=== PATIENT | male | born 1990 | race American Indian/Alaskan Native ===

== ENCOUNTER 2021-09-16 22:58 | Emergency (ER) | payer SELFPAY ==
[2021-09-16 23:50] VITALS: BP 124/70
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
== END 2021-09-17 07:00 | disposition left against medical advice (07) ==
LOC: ED 22:58
DX: M25.512 Pain in left shoulder (principal); Z53.21 Procedure and treatment not carried out due to patient leaving prior to being seen by health care provider

== ENCOUNTER 2021-09-17 16:14 | Emergency (ER) | payer OTHER ==
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
[2021-09-17 21:30] VITALS: BP 132/77
== END 2021-09-17 21:29 | disposition home or self-care (01) ==
LOC: ED 16:14
DX: M79.18 Myalgia, other site (principal); M25.562 Pain in left knee; M25.512 Pain in left shoulder; M25.532 Pain in left wrist; F17.200 Nicotine dependence, unspecified, uncomplicated; F12.90 Cannabis use, unspecified, uncomplicated; Z79.899 Other long term (current) drug therapy; V89.2XXA Person injured in unspecified motor-vehicle accident, traffic, initial encounter; Y93.89 Activity, other specified; Y92.488 Other paved roadways as the place of occurrence of the external cause; Y99.8 Other external cause status
CPT/HCPCS: 99283